=== PATIENT | male | born 1945 | race Caucasian/White ===

== ENCOUNTER 2021-03-29 16:40 | Emergency (ER) | payer MEDICARE, BC | END 2021-03-29 20:40 | disposition home or self-care (01) | LOC: CSHERS 16:40 | DX: R60.0 Localized edema (principal); E03.9 Hypothyroidism, unspecified; E78.5 Hyperlipidemia, unspecified; E78.00 Pure hypercholesterolemia, unspecified; I10 Essential (primary) hypertension; G20 Parkinson's disease | CPT/HCPCS: 36415; 83880; 93970 ==